=== PATIENT | female | born 1975 | race Asian ===

== ENCOUNTER → 2023-10-12 14:30 | Outpatient (REF) | payer OTHER, SELFPAY | LOC: HWWDC 14:30 | PROVIDERS: ATTENDING PHYSICIAN Family Medicine | DX: Z12.31 Encounter for screening mammogram for malignant neoplasm of breast (principal) | CPT/HCPCS: 77063; 77067 ==

== ENCOUNTER → 2024-11-28 10:38 | Outpatient (REF) | payer OTHER, SELFPAY | LOC: HWWDC 10:38 | PROVIDERS: ATTENDING PHYSICIAN Nurse Practitioner Obstetrics & Gynecology; FAMILY PHYSICIAN Family Medicine | DX: Z12.31 Encounter for screening mammogram for malignant neoplasm of breast (principal) | CPT/HCPCS: 77063; 77067 ==